=== PATIENT | female | born 1955 | race Caucasian/White ===

== ENCOUNTER 2020-08-02 07:59 | Outpatient (CLI) | payer OTHER ==
--- NOTE | 2020-08-02 09:41 | BD ---
BONE DENSITOMETRY: Date: 08/02/2020 HISTORY: Postmenopausal screening. FINDINGS: Lumbar Spine: BMD (g/cm2) L1 0.922 T-Score: -0.6 L2 0.992 T-Score: -0.3 L3 1.006 T-Score: -0.7 L4 1.016 T-Score: -0.4 Total 0.986 T-Score: -0.6 Left Femoral Neck: 0.761 T-Score: -0.8 Total Femur: 0.925 T-Score: -0.1 IMPRESSION: Bone mineral density of the lumbar spine and femoral neck are both within normal range. POS: AGW
== END 2020-08-02 08:00 | disposition home or self-care (01) ==
LOC: BICMAMMO 07:59
PROVIDERS: ATTEND Family Medicine
DX: Z13.820 Encounter for screening for osteoporosis (principal); N95.9 Unspecified menopausal and perimenopausal disorder
CPT/HCPCS: 77063; 77067; 77080

== ENCOUNTER 2023-03-19 13:27 | Outpatient (CLI) | payer MEDICARE | END 2023-03-19 13:28 | disposition home or self-care (01) | LOC: BICMAMMO 13:27 | PROVIDERS: ATTEND Family Medicine | DX: Z12.31 Encounter for screening mammogram for malignant neoplasm of breast (principal); Z85.850 Personal history of malignant neoplasm of thyroid | CPT/HCPCS: 77063; 77067 ==